=== PATIENT | male | born 1980 | race Two or more races ===

== ENCOUNTER 2017-04-22 10:39 | Inpatient (IN) | payer OTHER ==
[~2017-04-22] VITALS: Ht 165.1 cm; Wt 63.9 kg
[2017-04-22] MEDS ORDERED: SODIUM CHLORIDE FLUSH 10ML SYR IVF ONE (11:30)
[2017-04-22 11:31] LABS: BASOPHILS # (AUTO) 0.04 x10^3/uL (0-0.1); BASOPHILS % (AUTO) 0 % (0-1); EOSINOPHILS # (AUTO) 0.11 x10^3/uL (0-0.4); EOSINOPHILS % (AUTO) 1 % (1-7); LYMPHOCYTES # (AUTO) 1.73 x10^3/uL (1-3.4); LYMPHOCYTES % (AUTO) 18 % (22-44); MD NO; MEAN CORPUSCULAR HEMOGLOBIN 30.4 pg (27.5-34.5); MEAN CORPUSCULAR HGB CONC 33.9 g/dL (33.2-36.2); MEAN CORPUSCULAR VOLUME 89.7 fL (81-97); MEAN PLATELET VOLUME 10.1 fL (7.4-10.4); MONOCYTES # (AUTO) 0.39 x10^3/uL (0.2-0.8); MONOCYTES % (AUTO) 4 % (2-9); NEUTROPHILS % (AUTO) 77 % (42-75); PLATELET COUNT 290 x10^3/uL (130-400); RED BLOOD COUNT 5.84 x10^6/uL (4.38-5.82); RED CELL DISTRIBUTION WIDTH 12.4 % (9.4-14.8)
[2017-04-22 11:32] LABS: HCT (SEDRATE) 52.4 % (39.2-51.8)
[2017-04-22 11:42] LABS: ALANINE AMINOTRANSFERASE 44 U/L (12-78); ALBUMIN 4.3 g/dL (3.4-5.0); ANION GAP 9 mmol/L (5-15); CALCIUM 8.9 mg/dL (8.5-10.1); CHLORIDE 103 mmol/L (98-107); CREATININE 0.84 mg/dL (0.7-1.3)
[2017-04-22 11:44] LABS: ALKALINE PHOSPHATASE 75 U/L (45-117); BILIRUBIN,TOTAL 0.6 mg/dL (0.2-1.0); CREATINE KINASE, TOTAL 312 U/L (39-308); TOTAL PROTEIN 8.5 g/dL (6.4-8.2)
[2017-04-22 13:10] LABS: MICROSCOPIC AUTO
[2017-04-22 13:13] LABS: CULTURE INDICATED? NO
[2017-04-22] MEDS ORDERED: DOCUSATE 100 MG CAPSULE PO PRN (16:30)
[2017-04-22] MEDS ORDERED: ACETAMINOPHEN 325 MG TABLET PO PRN (16:30)
[2017-04-22] MEDS ORDERED: ONDANSETRON ODT 4 MG PO PRN (16:30)
[2017-04-22] MEDS ORDERED: ONDANSETRON 2MG/ML, 2ML IVPush PRN (16:30)
[2017-04-22] MEDS ORDERED: GADOBUTROL 7.5 MMOL/7.5 ML PFS ONE (17:55)
[2017-04-22 18:10] LABS: HEMOGLOBIN A1C 5.8 % (4.2-6.3)
[2017-04-22] MEDS: SODIUM CHLORIDE 0.9% 1,000 ML IV SCH (19:50)
[2017-04-22 19:52] VITALS: BP 116/81
[2017-04-22] MEDS ORDERED: ENOXAPARIN 40 MG/0.4 ML SQ SCH (21:00)
[2017-04-23 01:40] VITALS: BP 108/80
[2017-04-23] MEDS: SODIUM CHLORIDE 0.9% 1,000 ML IV SCH ×2 (02:55→09:37)
[2017-04-23 05:05] LABS: BASOPHILS # (AUTO) 0.04 x10^3/uL (0-0.1); BASOPHILS % (AUTO) 1 % (0-1); EOSINOPHILS # (AUTO) 0.17 x10^3/uL (0-0.4); EOSINOPHILS % (AUTO) 2 % (1-7); LYMPHOCYTES # (AUTO) 2.06 x10^3/uL (1-3.4); LYMPHOCYTES % (AUTO) 22 % (22-44); MD NO; MEAN CORPUSCULAR HEMOGLOBIN 30.3 pg (27.5-34.5); MEAN CORPUSCULAR HGB CONC 33.5 g/dL (33.2-36.2); MEAN CORPUSCULAR VOLUME 90.4 fL (81-97); MEAN PLATELET VOLUME 9.9 fL (7.4-10.4); MONOCYTES # (AUTO) 0.64 x10^3/uL (0.2-0.8); MONOCYTES % (AUTO) 7 % (2-9); NEUTROPHILS % (AUTO) 68 % (42-75); PLATELET COUNT 258 x10^3/uL (130-400); RED BLOOD COUNT 5.18 x10^6/uL (4.38-5.82); RED CELL DISTRIBUTION WIDTH 12.8 % (9.4-14.8)
[2017-04-23 05:12] LABS: CHLORIDE 108 mmol/L (98-107)
[2017-04-23 05:13] LABS: ALBUMIN 3.3 g/dL (3.4-5.0); ANION GAP 8 mmol/L (5-15); CALCIUM 8.3 mg/dL (8.5-10.1)
[2017-04-23 05:15] LABS: ALANINE AMINOTRANSFERASE 32 U/L (12-78); ALKALINE PHOSPHATASE 56 U/L (45-117); BILIRUBIN,TOTAL 0.6 mg/dL (0.2-1.0); CREATINE KINASE, TOTAL 224 U/L (39-308); TOTAL PROTEIN 6.7 g/dL (6.4-8.2)
[2017-04-23 06:48] VITALS: BP 121/89
[2017-04-23 11:04] LABS: HCT (SEDRATE) 45.7 % (39.2-51.8)
[2017-04-23 11:57] LABS: FOLATE LEVEL 19.8 ng/mL (3.1-17.5)
[2017-04-23 12:30] VITALS: BP 112/77
== END 2017-04-23 14:09 | disposition home or self-care (01) | DRG 56 ==
LOC: EDBD 10:39 → ED 12:27 → EDIP 15:03 → 4EST 18:29 → DCLOUNGE 04-23 13:53
PROVIDERS: ADMIT Hospitalist; ATTEND Family Medicine
DX: G12.21 Amyotrophic lateral sclerosis (principal); G82.50 Quadriplegia, unspecified; R64 Cachexia; D75.1 Secondary polycythemia; R26.81 Unsteadiness on feet; R73.9 Hyperglycemia, unspecified; Z83.3 Family history of diabetes mellitus; Z87.891 Personal history of nicotine dependence; Z68.23 Body mass index [BMI] 23.0-23.9, adult
CPT/HCPCS: 36415; 70450; 70553; 72156; 72157; 72158; 80053; 81001; 82525; 82550; 82607; 82746; 83036; 83735; 84100; 84155; 84165; 84443; 85025; 85651; 86038; 86140; 86703; 87899; 93005; 99285; A9585; J1650; G0435; J7030